=== PATIENT | male | born 1975 | race Caucasian/White ===

== ENCOUNTER 2016-11-07 06:13 | Emergency (ER) | payer OTHER ==
[~2016-11-07] VITALS: Ht 185.4 cm; Wt 129.8 kg
[2016-11-07 07:25] LABS: EOSINOPHIL (%) 0.9 % (0-5); EOSINOPHIL COUNT 0.1 K/uL (0-0.3); HEMATOCRIT 44.2 % (38.0-50.0); IMMATURE GRANULOCYTE (%) 0.6 % (0.0-0.7); IMMATURE GRANULOCYTE COUNT 0.1 K/uL; INSTRUMENT ABS NEUTROPHIL CT 6.9 K/uL; LYMPHOCYTE COUNT 1.4 K/uL (1.0-2.8); MCHC 34.2 G/DL (30.0-36.0); MEAN PLAT.VOLUME 9.1 uM^3 (9.0-12.4); MONOCYTE (%) 9.4 % (3-12); MONOCYTE COUNT 0.9 K/uL (0-0.8); NEUTROPHIL (%) 73.8 % (45-76); NEUTROPHIL COUNT 6.9 K/uL (1.8-6.4); PLATELET COUNT 252 K/uL (156-360); RBC DIS.WIDTH-CV 12.2 % (11.8-14.6); RBC DIS.WIDTH-SD 35.9 % (39-53); RED BLOOD COUNT 5.39 M/uL (4.00-5.50); WHITE BLOOD COUNT 9.3 K/uL (4.1-10.2)
[2016-11-07 07:29] LABS: ADD MIUA? YES; BILIRUBIN NEGATIVE; BLOOD NEGATIVE; COLOR YELLOW ((YELLOW)); GLUCOSE (STRIP) NEGATIVE; KETONES NEGATIVE; LEUKOCYTES NEGATIVE; NITRITE NEGATIVE; PROTEIN (STRIP) NEGATIVE; SPECIFIC GRAVITY 1.021 (1.000-1.030); UROBILINOGEN 0.2 MG/DL (0.2-1.0)
[2016-11-07 07:35] LABS: BACTERIA RARE /HPF; CALCIUM OXALATE CRYSTALS 1+ /HPF; EPITHELIAL CELLS RARE /HPF; HYALINE CASTS 0-5 /LPF; MUCUS 1+ /LPF; RED BLOOD CELLS 0-5 /HPF (0-5); WHITE BLOOD CELLS 0-5 /HPF (0-5)
[2016-11-07 07:55] LABS: ANION GAP 9 MEQ/L (2-14); CHLORIDE 101 MEQ/L (99-109); POTASSIUM 3.9 MEQ/L (3.7-5.4); SAMPLE HEMOLYSIS CHECK 0; SAMPLE ICTERIC CHECK 0; SAMPLE LIPEMIA CHECK 0; SODIUM 136 MEQ/L (136-147)
[2016-11-07 08:01] LABS: ALKALINE PHOSPHATASE 91 IU/L (3-129); GFR ESTIMATE (CALCULATED) > 59 mL/min/; GLUCOSE 92 mg/dL (70-99); LIPASE 18 U/L (1.0-51.0); UREA NITROGEN (BUN) 16 mg/dL (9-23)
[2016-11-07] MEDS ORDERED: BENTYL20 MG PO (09:33)
[2016-11-07 09:50] VITALS: BP 109/78
== END 2016-11-07 09:51 | disposition home or self-care (01) ==
LOC: EME 06:13
PROVIDERS: Physician Assistant
DX: R10.9 Unspecified abdominal pain (principal); I10 Essential (primary) hypertension; Z88.8 Allergy status to other drugs, medicaments and biological substances
CPT/HCPCS: 74176; 80053; 81003; 83690; 85025; 99281; 99284

== ENCOUNTER 2017-07-05 03:08 | Inpatient (IN) | payer OTHER ==
[~2017-07-05] VITALS: Ht 182.9 cm; Wt 136.9 kg
[~2017-07-05 03:08] MED LIST: BENTYL20 MG PO
[2017-07-05 03:34] LABS: HEMATOCRIT 43.3 % (38.0-50.0); HEMOGLOBIN 14.9 G/DL (12.5-16.6); MCH 28.6 PG (29.0-34.0); MCHC 34.4 G/DL (30.0-36.0); MCV 83.1 FL (86-99); PLATELET COUNT 315 K/uL (156-360); RBC DIS.WIDTH-CV 12.4 % (11.8-14.6); RBC DIS.WIDTH-SD 37.2 % (39-53); RED BLOOD COUNT 5.21 M/uL (4.00-5.50); WHITE BLOOD COUNT 12.7 K/uL (4.1-10.2)
[2017-07-05 03:44] LABS: CHLORIDE 102 mEq/L (99-109); POTASSIUM 4.3 mEq/L (3.7-5.4); SODIUM 139 mEq/L (136-147)
[2017-07-05 03:45] LABS: GLUCOSE 158 mg/dL (70-99)
[2017-07-05 03:49] LABS: CREATININE 1.2 mg/dL (0.6-1.3); GFR ESTIMATE (CALCULATED) > 59 mL/min/ (58.99-99999)
[2017-07-05 03:50] LABS: UREA NITROGEN (BUN) 13 mg/dL (9-23)
[2017-07-05 03:53] LABS: APPEARANCE SL.HAZY ((CLEAR)); BILIRUBIN NEGATIVE; BLOOD LARGE; COLOR YELLOW ((YELLOW)); GLUCOSE (STRIP) NEGATIVE; KETONES NEGATIVE; LEUKOCYTES NEGATIVE; NITRITE NEGATIVE; PROTEIN (STRIP) NEGATIVE; SPECIFIC GRAVITY 1.024 (1.000-1.030); UROBILINOGEN 0.2 MG/DL (0.2-1.0)
[2017-07-05 04:47] LABS: BACTERIA NONE SEEN /HPF; EPITHELIAL CELLS RARE /HPF; MUCUS 1+ /LPF; RED BLOOD CELLS TNTC /HPF (0-5); UCUL ADDED? YES; WHITE BLOOD CELLS 0-5 /HPF (0-5)
[2017-07-05 08:37] VITALS: BP 113/73
[2017-07-05 16:38] VITALS: BP 118/64
[2017-07-05 20:56] VITALS: BP 126/83
[2017-07-06 00:14] VITALS: BP 124/72
[2017-07-06 07:08] LABS: BASOPHIL (%) 0.6 % (0-1); BASOPHIL COUNT 0.1 K/uL (0-0.1); EOSINOPHIL COUNT 0.2 K/uL (0-0.3); HEMATOCRIT 38.8 % (38.0-50.0); IMMATURE GRANULOCYTE (%) 1.1 % (0.0-0.7); LYMPHOCYTE (%) 26.3 % (15-42); LYMPHOCYTE COUNT 2.2 K/uL (1.0-2.8); MCH 27.7 PG (29.0-34.0); MCHC 32.7 G/DL (30.0-36.0); MCV 84.7 FL (86-99); MONOCYTE (%) 6.9 % (3-12); MONOCYTE COUNT 0.6 K/uL (0-0.8); NEUTROPHIL (%) 63.1 % (45-76); NEUTROPHIL COUNT 5.4 K/uL (1.8-6.4); PLATELET COUNT 266 K/uL (156-360); RBC DIS.WIDTH-CV 12.8 % (11.8-14.6); RED BLOOD COUNT 4.58 M/uL (4.00-5.50); WHITE BLOOD COUNT 8.5 K/uL (4.1-10.2)
[2017-07-06 07:20] LABS: HEMOGLOBIN 12.7 G/DL (12.5-16.6)
[2017-07-06 07:30] LABS: CHLORIDE 105 MEQ/L (99-109); GFR ESTIMATE (CALCULATED) > 59 mL/min/ (58.99-99999); POTASSIUM 3.9 MEQ/L (3.7-5.4); SODIUM 140 MEQ/L (136-147); UREA NITROGEN (BUN) 16 mg/dL (9-23)
[2017-07-06 07:34] LABS: GLUCOSE 100 mg/dL (70-99)
[2017-07-06 07:45] VITALS: BP 107/62
[2017-07-06] MEDS ORDERED: SINGULAIR10 MG PO (10:19)
[2017-07-06] MEDS ORDERED: BENTYL10 MG PO (10:19)
[2017-07-06] MEDS ORDERED: COZAAR50 MG PO (10:19)
[2017-07-06] MEDS ORDERED: TAMSULOSIN HCL0.4 MG PO (13:01)
[2017-07-06 14:32] VITALS: BP 107/62
== END 2017-07-06 14:33 | disposition home or self-care (01) | DRG 694 ==
LOC: EME 03:08 → EDOF 05:33 → 5EAST 05:33 → ENRESERV 05:35 → 5EAST 08:38
PROVIDERS: Internal Medicine
DX: N13.2 Hydronephrosis with renal and ureteral calculous obstruction (principal); Z68.41 Body mass index [BMI] 40.0-44.9, adult; K42.9 Umbilical hernia without obstruction or gangrene; I10 Essential (primary) hypertension; K43.9 Ventral hernia without obstruction or gangrene; E66.9 Obesity, unspecified; D72.829 Elevated white blood cell count, unspecified; K58.0 Irritable bowel syndrome with diarrhea
CPT/HCPCS: 74176; 80048; 81003; 85025; 85027; 87086; 99281; 99285; J0744; J1885; J1956; J2270; J2405; J7030

== ENCOUNTER → 2017-08-05 | Outpatient (CLI) | payer OTHER ==
[~2017-08-05] MED LIST changes: +BENTYL10 MG PO; +COZAAR50 MG PO; +SINGULAIR10 MG PO; +TAMSULOSIN HCL0.4 MG PO
== END | disposition home or self-care (01) ==
LOC: CDC 09:32
DX: Z01.810 Encounter for preprocedural cardiovascular examination (principal); K42.9 Umbilical hernia without obstruction or gangrene; I49.8 Other specified cardiac arrhythmias; I45.4 Nonspecific intraventricular block
CPT/HCPCS: 93000

== ENCOUNTER 2017-08-10 05:49 | Day surgery (SDC) | payer OTHER ==
[~2017-08-10] VITALS: Ht 185.4 cm; Wt 133.8 kg
[2017-08-10 06:44] VITALS: BP 121/77
[2017-08-10 06:52] VITALS: BP 121/77
[2017-08-10 07:33] LABS: ALBUMIN 4.2 G/DL (3.2-4.8); ALKALINE PHOSPHATASE 72 IU/L (3-129); ALT (GPT) 17 IU/L (3-49); AST (GOT) 13 IU/L (2-34); CHLORIDE 104 MEQ/L (99-109); CREATININE 1.1 MG/DL (0.6-1.3); GFR ESTIMATE (CALCULATED) > 59 mL/min/ (58.99-99999); GLUCOSE 99 mg/dL (70-99); SODIUM 139 MEQ/L (136-147); TOTAL BILIRUBIN 0.5 MG/DL (0.0-1.0); TOTAL PROTEIN 6.5 G/DL (6.4-8.3); UREA NITROGEN (BUN) 15 mg/dL (9-23)
[2017-08-10] MEDS ORDERED: NORCO 5/3251 TABLET PO (09:23)
[2017-08-10 11:48] VITALS: BP 119/72
[2017-08-10 12:57] VITALS: BP 130/68
== END 2017-08-10 13:05 | disposition home or self-care (01) ==
LOC: SDC
PROVIDERS: Surgery
DX: K43.6 Other and unspecified ventral hernia with obstruction, without gangrene (principal); K66.0 Peritoneal adhesions (postprocedural) (postinfection); E66.9 Obesity, unspecified; Z68.39 Body mass index [BMI] 39.0-39.9, adult; I10 Essential (primary) hypertension; K58.9 Irritable bowel syndrome, unspecified; Z82.49 Family history of ischemic heart disease and other diseases of the circulatory system; Z88.1 Allergy status to other antibiotic agents
CPT/HCPCS: 80053; C1781; J0330; J0690; J1170; J1885; J2250; J2405; J3475; Q0175; S0020